=== PATIENT | male | born 1985 | race African-American/Black ===

== ENCOUNTER 2019-10-12 21:28 | Emergency (ER) | payer OTHER ==
[~2019-10-12] VITALS: Ht 175.3 cm; Wt 86.2 kg
[2019-10-12] MEDS ORDERED: OCUFLOX5 ML RT. EYE (23:27)
[2019-10-12 23:53] VITALS: BP 135/93
== END 2019-10-12 23:57 | disposition home or self-care (01) ==
LOC: ER 21:28
DX: S05.01XA Injury of conjunctiva and corneal abrasion without foreign body, right eye, initial encounter (principal); X58.XXXA Exposure to other specified factors, initial encounter; Y93.89 Activity, other specified; Y92.89 Other specified places as the place of occurrence of the external cause; Y99.8 Other external cause status